=== PATIENT | female | born 1990 | race Hispanic/Latino ===

== ENCOUNTER 2024-03-18 08:54 | Emergency (ER) | payer OTHER, SELFPAY ==
[2024-03-18 09:07] VITALS: BP 133/93
[2024-03-18 09:50] LABS: % Basophils 0.3 % (0-2); % Eosinophils 0.4 % (0-6); % Immature Granulocytes 0.5 % (0-0.5); % Lymphocytes 2.8 % (20.5-51.1); % Monocytes 4.6 % (1.7-9.3); % Neutrophils 91.4 % (42.2-75.2); Absolute Immature Granulocytes 0.1 10^3/uL (0-0.05); Absolute Lymphocytes 0.3 10^3/uL (1.2-3.4); Absolute Monocytes 0.5 10^3/uL (0.1-0.6); Absolute Neutrophils 10.2 10^3/uL (1.4-6.5); Hematocrit 35.9 % (37.0-47.0); Hemoglobin 12.4 g/dL (12.0-16.0); Mean Corp Hgb Conc. 34.5 g/dL (33.0-37.0); Mean Corpuscular Volume 83.9 fL (81.0-99.0); Mean Platelet Volume 9.5 fL (7.4-10.4); Nucleated Red Blood Cells % 0 %; Platelet Count 407 10^3/uL (130-400); Red Blood Cell Count 4.28 10^6/uL (4.20-5.40); Red Cell Dist. Width 12.7 % (11.5-14.5); White Blood Cell Count 11.1 10^3/uL (4.8-10.8)
[2024-03-18 09:59] LABS: COVID-19 Antigen Negative (Negative)
[2024-03-18 10:00] LABS: HCG, Serum Qualitative Screen Negative
[2024-03-18 10:03] LABS: ALT (SGPT) 52 U/L (0-35); AST (SGOT) 41 U/L (14-36); Albumin 4.8 g/dl (3.5-5.0); Alkaline Phosphatase 87 U/L (38-126); Blood Urea Nitrogen 11 mg/dl (7-17); Calcium 9.5 mg/dl (8.4-10.2); Carbon Dioxide 23 mmol/L (22-30); Chloride 97 mmol/L (98-107); Glucose 84 mg/dl (70-99); Potassium 4.1 mmol/L (3.5-5.1); Sodium 132 mmol/L (135-145); Total Bilirubin 0.3 mg/dl (0.2-1.3); Total Protein 7.5 g/dl (6.3-8.2); eGFR > 60.00
[2024-03-18 10:15] LABS: Troponin I < 0.012 ng/ml
--- NOTE | 2024-03-18 10:32 | ED.GENMED ---
ED Provider Triage
<No Gomez [employer] - Last Filed: 03/18/24 10:34>
-
Patient seen by provider in Triage?: Seen in Triage
Attestation: A medical screening examination has been initiated by a qualified medical provider. Based on the assessment performed at this time, it has been determined that an emergent medical condition may exist and the patient has been informed
that further medical evaluation and possible additional diagnostic testing may be needed.
HPI: 33-year-old female with history of asthma states she started with shortness of breath, cough, fatigue, fever yesterday.
GENERAL: Alert , in no apparent distress
EYE: No visual abnormalities.
ENT: No visible abnormalities.
LUNGS: No acute respiratory distress
NEUROLOGICAL: Alert and oriented
SKIN: Skin intact. No visible changes.
MUSCULOSKELETAL: Moving extremities normally
PSYCH: Normal and appropriate interaction.
This is a medical evaluation conducted in person to initiate diagnostic evaluation and provide initial therapeutics. Please see further documentation by the treating clinician.
History of Present Illness
<No Gomez [employer] REPA[employer] - Last Filed: 03/18/24 10:34>
General
Chief Complaint: Blood Pressure Problem
Time Seen by Provider: 03/18/24 11:01
History of Present Illness
History of Present Illness:
<Cristóbal Jones PA-C - Last Filed: 03/18/24 15:00>
General
Source: patient
Exam Limitations: none
History of Present Illness
History of Present Illness:
Patient presents with fatigue elevated blood pressure readings recently and onset of fever and headache last night. Temperature currently is 102.9. She states she is also getting alerts from her smart watch that her heart rate is fast. She notes
a headache that is diffuse. She notes a cough. She notes myalgias. Her niece is sick with similar symptoms. No other complaints at this time
Past History
<No Gomez [employer] REPAIR[employer] - Last Filed: 03/18/24 10:34>
Past History
ED Past Medical History: Asthma, GERD and Other (Kidney stones)
ED Past Surgical History: Orthopedic, Urological (Kidney stone removal with stent placement January 2018, December 2016) and Other (umbilical hernia repair)
Social History
Tobacco: Non-smoker
Alcohol: None
Drug: None
Personal: Single
Living: with family
Employment: Employed
Family History
Family History: Other (Kidney stones)
Phy Exam
<Cristóbal Jones PA-C - Last Filed: 03/18/24 15:00>
Physical Exam
Physical Exam:
General: Ill-appearing female no acute respiratory distress
HEENT: Normocephalic atraumatic mucosa moist pupils equal round reactive to light heart: Tachycardic but regular
Lungs: Clear no obvious wheeze or rales
Extremities: No cyanosis or edema
Skin is warm no rash neurologic exam: Alert and oriented
Sepsis
<Cristóbal Jones PA-C - Last Filed: 03/18/24 15:00>
Sepsis Screening
Sepsis Assessment: Sepsis Ruled Out
Sepsis Screen
Sepsis Screen: Sepsis Ruled Out
Date: 03/18/24
Time: 14:59
Course
<No Gomez, [employer] REPA[employer]ER - Last Filed: 03/18/24 10:34>
Orders/Labs/Results
Orders:
Orders
03/18/24 09:11
Electrocardiogram (*1) Urgent
Reason for Study: Chest Pain
EKG- Treatment ONCE
Test Result ONCE
CR Chest - 2 Views Urgent
Comment:
Reason For Exam: chest pain
03/18/24 09:27
COVID-19 Antigen Urgent
Source: Nasal Swab
Complete Blood Count/With Diff Urgent
Comprehensive Metabolic Panel Urgent
HCG, Serum Qualitative Screen Urgent
Troponin I Urgent
Urinalysis Reflex To Culture Urgent
Date Specimen was Collected: 03/18/24
Time Specimen was Collected: 09:11
Urine Microscopic Reflex Cult Urgent
Influenza A+B Rapid Molecular Urgent
TRISTIN Source: Nasal Swab
Specimen Description:
Date Specimen was Collected: 03/18/24
Time Specimen was Collected: 09:11
03/18/24 10:34
Ipratropium/Albuterol Sulfate [Duoneb] 3 ml INH R NOW STA
03/18/24 11:08
0.9% Sodium Chloride 1000 ml [Nss] 1,000 ml IV BOLUS
Acetaminophen [Tylenol] 1,000 mg PO NOW STA
03/18/24 13:05
0.9% Sodium Chloride 1000 ml [Nss] 1,000 ml IV BOLUS
03/18/24 13:41
Ketorolac [Toradol] 15 mg IV NOW STA
Abnormal Lab Results
03/18/24
09:27
WBC 11.1 H 10^3/uL
(4.8-10.8)
Hct 35.9 L %
(37.0-47.0)
Plt Count 407 H 10^3/uL
(130-400)
Abs Immat Gran (auto) 0.1 H 10^3/uL
(0-0.05)
Absolute Neuts (auto) 10.2 H 10^3/uL
(1.4-6.5)
Absolute Lymphs (auto) 0.3 L 10^3/uL
(1.2-3.4)
Neutrophils % 91.4 H %
(42.2-75.2)
Lymphocytes % 2.8 L %
(20.5-51.1)
Sodium 132 L mmol/L
(135-145)
Chloride 97 L mmol/L
(98-107)
AST 41 H U/L
(14-36)
ALT 52 H U/L
(0-35)
Ur Occult Blood Reflex 1+ A
(Negative)
Leukocyte Esterase Rfl Trace A
(Negative)
Urine RBC 3-6 A /HPF
(0-2)
03/18/24 09:27
03/18/24 09:27
Vital Signs
Initial and Last Documented VS:
Initial Vital Signs
Temp Pulse Resp BP Pulse Ox
100.4 F H 142 22 133/93 99
03/18/24 09:07 03/18/24 09:07 03/18/24 09:07 03/18/24 09:07 03/18/24 09:07
Last Documented Vital Signs
Temp Pulse Resp BP Pulse Ox
100.1 F 115 20 101/58 98
03/18/24 12:50 03/18/24 12:50 03/18/24 12:50 03/18/24 12:50 03/18/24 12:50
<Cristóbal Jones PA-C - Last Filed: 03/18/24 15:00>
Orders/Labs/Results
Orders:
Orders
03/18/24 09:11
Electrocardiogram (*1) Urgent
Reason for Study: Chest Pain
EKG- Treatment ONCE
Test Result ONCE
CR Chest - 2 Views Urgent
Comment:
Reason For Exam: chest pain
03/18/24 09:27
COVID-19 Antigen Urgent
Source: Nasal Swab
Complete Blood Count/With Diff Urgent
Comprehensive Metabolic Panel Urgent
HCG, Serum Qualitative Screen Urgent
Troponin I Urgent
Urinalysis Reflex To Culture Urgent
Date Specimen was Collected: 03/18/24
Time Specimen was Collected: 09:11
Urine Microscopic Reflex Cult Urgent
Influenza A+B Rapid Molecular Urgent
TRISTIN Source: Nasal Swab
Specimen Description:
Date Specimen was Collected: 03/18/24
Time Specimen was Collected: 09:11
03/18/24 10:34
Ipratropium/Albuterol Sulfate [Duoneb] 3 ml INH R NOW STA
03/18/24 11:08
0.9% Sodium Chloride 1000 ml [Nss] 1,000 ml IV BOLUS
Acetaminophen [Tylenol] 1,000 mg PO NOW STA
03/18/24 13:05
0.9% Sodium Chloride 1000 ml [Nss] 1,000 ml IV BOLUS
03/18/24 13:41
Ketorolac [Toradol] 15 mg IV NOW STA
Abnormal Lab Results
03/18/24
09:27
WBC 11.1 H 10^3/uL
(4.8-10.8)
Hct 35.9 L %
(37.0-47.0)
Plt Count 407 H 10^3/uL
(130-400)
Abs Immat Gran (auto) 0.1 H 10^3/uL
(0-0.05)
Absolute Neuts (auto) 10.2 H 10^3/uL
(1.4-6.5)
Absolute Lymphs (auto) 0.3 L 10^3/uL
(1.2-3.4)
Neutrophils % 91.4 H %
(42.2-75.2)
Lymphocytes % 2.8 L %
(20.5-51.1)
Sodium 132 L mmol/L
(135-145)
Chloride 97 L mmol/L
(98-107)
AST 41 H U/L
(14-36)
ALT 52 H U/L
(0-35)
Ur Occult Blood Reflex 1+ A
(Negative)
Leukocyte Esterase Rfl Trace A
(Negative)
Urine RBC 3-6 A /HPF
(0-2)
03/18/24 09:27
03/18/24 09:27
Vital Signs
Initial and Last Documented VS:
Initial Vital Signs
Temp Pulse Resp BP Pulse Ox
100.4 F H 142 22 133/93 99
03/18/24 09:07 03/18/24 09:07 03/18/24 09:07 03/18/24 09:07 03/18/24 09:07
Last Documented Vital Signs
Temp Pulse Resp BP Pulse Ox
100.1 F 115 20 101/58 98
03/18/24 12:50 03/18/24 12:50 03/18/24 12:50 03/18/24 12:50 03/18/24 12:50
<Cristóbal Jones PA-C - Last Filed: 03/18/24 15:00>
MDM/Problems Addressed
Differential Diagnosis Includes:
Patient with fever headache tachycardia. She tested positive for influenza. Her heart rate is in the 140s. Suspect may be related to fever and dehydration. Tylenol and fluids ordered. Chest x-ray pending.
<Cristóbal Jones PA-C - Last Filed: 03/18/24 15:00>
*Critical Care Note
Total Time (30-74mins, 75-104mins- exclusive of procedures): Not Applicable
<Cristóbal Jones PA-C - Last Filed: 03/18/24 15:00>
Update Note
Update Note:
Patient's heart rate improved after fluids. Will prescribe nebulizer solution for her to use at home. Recommended hydration and fever control otherwise. Stable for discharge with influenza
ED Attending Note
<No Gomez, [employer] REPAIRER - Last Filed: 03/18/24 10:34>
-
Portions of this chart may have been created with voice recognition software.� Occasional wrong word or��sound alike� substitutions may have occurred due to the inherent limitations of voice recognition software.
Discharge Plan
Departure
Patient Disposition: Home (Routine Discharge)
Date of Disposition: 03/18/24
Time of Disposition: 14:56
Patient with high blood pressure during this ER visit?: No
Discharge Problem:
Influenza A
Instructions: Flu in adults - ED discharge instructions
Prescriptions:
New
albuterol sulfate 2.5 mg /3 mL (0.083 %) solution for nebulization
2.5 mg inhalation Q4H PRN (Reason: bronchospasm) Qty: 75 0RF
No Action
albuterol sulfate 1 PUFF HFA aerosol inhaler
2 puff inhalation R Q4HPRN PRN (Reason: sob)
oxycodone 5 mg tablet
5 mg PO Q4H PRN (Reason: pain) Qty: 20 0RF
dextromethorphan-guaifenesin 10-200 mg/5 mL liquid
10 ml PO Q8H PRN (Reason: cough) Qty: 250 0RF
Referrals:
UNKNOWN - PT DOES,NOT KNOW [Family Provider] -
Activity Restrictions/Additional Instructions:
Rest. Drink plenty of fluids. Use nebulizer if needed. Return if worse otherwise follow-up with your doctor
Interventions
Interventions:
*Risk Screen - Suicide Last Done: 03/18/24 09:07
*General Assessment Last Done: 03/18/24 11:21
*Neglect/Abuse Screening Last Done: 03/18/24 11:21
*ED COVID-19 Vaccine History Last Done: 03/18/24 11:21
ED- Cardiac Assessment Last Done: 03/18/24 11:30
ED- Neurological Assessment Last Done: 03/18/24 11:30
ED- Pulmonary Assessment Last Done: 03/18/24 11:30
ED-Skin Assessment Last Done: 03/18/24 11:30
Discharge Date and Time
Print Language: MALAWIAN
[2024-03-18] MEDS: DUONEB 3 ML INH (10:40)
[2024-03-18 10:42] LABS: Urine Albumin Negative (Neg - Trace); Urine Bilirubin Negative (Negative); Urine Character Clear (Clear); Urine Color Yellow; Urine Glucose Negative (Negative); Urine Ketone Negative (Negative); Urine Leukocyte Trace (Negative); Urine Nitrite Negative (Negative); Urine Occult Blood 1+ (Negative); Urine Specific Gravity 1.015 (<1.030); Urine Urobilinogen Negative (Neg - 1+)
[2024-03-18 11:10] VITALS: BP 124/71
[2024-03-18] MEDS: TYLENOL 1000 MG PO (11:21)
[2024-03-18] MEDS: NSS 1000 IV ×2 (11:22→13:21)
[2024-03-18 12:50] VITALS: BP 101/58
[2024-03-18 13:23] LABS: Urine Squamous Cell >30 /LPF (Few)
[2024-03-18 13:24] LABS: Urine White Cell 0-2 /HPF (0-5)
[2024-03-18] MEDS: TORADOL 15 MG IV (13:54)
[2024-03-18 15:08] VITALS: BP 110/64
== END 2024-03-18 15:21 | disposition home or self-care (01) ==
LOC: EMR 08:54
PROVIDERS: EMERGENCY PHYSICIAN Emergency Medicine
DX: J10.1 Influenza due to other identified influenza virus with other respiratory manifestations (principal); R51.9 Headache, unspecified; R00.0 Tachycardia, unspecified; R53.83 Other fatigue; Z11.52 Encounter for screening for COVID-19; R03.0 Elevated blood-pressure reading, without diagnosis of hypertension; K21.9 Gastro-esophageal reflux disease without esophagitis; J45.909 Unspecified asthma, uncomplicated; Z87.442 Personal history of urinary calculi; Z88.1 Allergy status to other antibiotic agents
CPT/HCPCS: 99284; 96374; 96361 ×2; 94640; 71046; 80053; 81003; 81015; 84484; 84703; 85025; 87502; 87811; 93005